=== PATIENT | female | born 1985 | race Caucasian/White ===

== ENCOUNTER 2023-05-04 11:57 | Day surgery (SDC) | payer MEDICAID ==
[~2023-05-04] VITALS: Ht 157.5 cm; Wt 79.1 kg
[2023-05-04] MEDS ORDERED: heparin 1,000unit/ml 10ml vial 10 ML ONE (12:20)
[2023-05-04] MEDS ORDERED: LIDOcaine 1% 30ml preserv. free vial ONE (12:20)
[2023-05-04] MEDS ORDERED: cefazolin 2gm/D5W 100mL 100 ML IV ONE (12:30)
[2023-05-04] MEDS ORDERED: SEVE800T28 PO (12:32)
[2023-05-04] MEDS ORDERED: CLON0.2T PO (12:32)
[2023-05-04] MEDS ORDERED: PANT40TA54 PO (12:32)
[2023-05-04] MEDS ORDERED: NIFE-72 PO (12:32)
[2023-05-04] MEDS ORDERED: NORG1TAB82 PO (12:32)
[2023-05-04] MEDS ORDERED: normal saline 1000ml 1,000 ML IV PRN (12:40)
[2023-05-04 12:46] VITALS: BP 116/71; PULSE 56; RESP 16; TEMP 98.3; O2SAT 99
[2023-05-04 13:00] VITALS: RESP 15; O2SAT 97
[2023-05-04 14:26] VITALS: BP 157/113; PULSE 73; RESP 15; O2SAT 99
== END 2023-05-04 14:50 | disposition home or self-care (01) ==
LOC: SSTAY O 11:57
PROVIDERS: ATTEND Radiology Vascular & Interventional Radiology
DX: Z49.01 Encounter for fitting and adjustment of extracorporeal dialysis catheter (principal); I13.2 Hypertensive heart and chronic kidney disease with heart failure and with stage 5 chronic kidney disease, or end stage renal disease; N18.6 End stage renal disease; I50.9 Heart failure, unspecified; Z79.899 Other long term (current) drug therapy
CPT/HCPCS: 36581; 77001; C1750; J1644; J3490; J7030; A4620; A9270; C1769